=== PATIENT | female | born 2000 | race African-American/Black ===

== ENCOUNTER 2025-03-09 18:43 | Emergency (ER) | payer SELFPAY ==
[~2025-03-09] VITALS: Ht 180.3 cm; Wt 79.0 kg
[2025-03-09 18:51] VITALS: O2SAT 100
[2025-03-10 00:21] LABS: HCG SCREEN NEGATIVE
[2025-03-10] MEDS: KETOROLAC 15MG/ML VIAL IM ONE (00:44)
[2025-03-10] MEDS: ACETAMINOPHEN 325MG TABLET PO ONE (00:45)
[2025-03-10 02:02] VITALS: BP 106/52; PULSE 61; RESP 18; TEMP 36.5; O2SAT 100
== END 2025-03-10 02:11 | disposition home or self-care (01) ==
LOC: ER 18:43
DX: R51.9 Headache, unspecified (principal); H57.11 Ocular pain, right eye; Y99.8 Other external cause status; R22.0 Localized swelling, mass and lump, head; Y04.0XXA Assault by unarmed brawl or fight, initial encounter; Y93.89 Activity, other specified; Y92.89 Other specified places as the place of occurrence of the external cause; M79.661 Pain in right lower leg
CPT/HCPCS: 99284; 84703; 70450; 70486; J1885